=== PATIENT | male | born 1990 | race Caucasian/White ===

== ENCOUNTER → 2017-03-16 | Outpatient (CLI) | payer OTHER ==
--- NOTE | 2017-03-16 07:18 | DIAGNOSTIC IMAGING REPORT ---
MRI OF THE BRAIN WITHOUT IV CONTRAST CLINICAL HISTORY: Migraine headache. Post concussion syndrome. Memory loss. COMPARISON STUDY: No priors. TECHNIQUE: MRI of the brain was performed utilizing various T1 and T2-weighted sequences in the axial, sagittal, and coronal planes. IV contrast was not administered for this examination. FINDINGS: Brain parenchyma: The brain parenchyma is normal in appearance. There is no hemorrhage or mass effect. There is no restricted diffusion to suggest acute ischemia. Michele-white matter differentiation is preserved. No extra-axial fluid collection is seen. There is mild cerebellar tonsillar ectopia. The tonsils project approximately 5 mm below the foramen magnum. Ventricles, sulci, and cisterns: Normal in configuration. Pituitary and sella: Unremarkable. Intracranial vasculature: Normal flow voids are maintained at the skull base. Orbits: The bony orbits are grossly intact. Orbital contents are normal in appearance. Sinuses and mastoids: Clear. Calvarium: Unremarkable. Cervical cord: Partially visualized cervical spinal cord is normal in morphology and signal intensity. IMPRESSION: No acute intracranial abnormality. Electronically signed by: Marin Hoyos M.D. 03/16/2017 7:17 AM Dictated Date/Time: 03/16/2017 7:15 AM
== END | disposition home or self-care (01) ==
LOC: C.MRIBC 06:36
PROVIDERS: ATTEND Psychiatry & Neurology Neurology
DX: R41.89 Other symptoms and signs involving cognitive functions and awareness (principal); F07.81 Postconcussional syndrome; G43.709 Chronic migraine without aura, not intractable, without status migrainosus; R42 Dizziness and giddiness